=== PATIENT | female | born 1990 | race Two or more races ===

== ENCOUNTER 2017-12-01 00:17 | Observation (INO) | payer MEDICAID, OTHER ==
[2017-12-01] MEDS ORDERED: FERR-7 PO (02:58)
[2017-12-01] MEDS ORDERED: PRENCAP61 OR (02:58)
== END 2017-12-01 02:50 | disposition home or self-care (01) | DRG 563 ==
LOC: LDRP 00:17
PROVIDERS: ADMIT Specialist; ATTEND Specialist
DX: O60.03 Preterm labor without delivery, third trimester (principal); O26.893 Other specified pregnancy related conditions, third trimester; N89.8 Other specified noninflammatory disorders of vagina; Z3A.39 39 weeks gestation of pregnancy
CPT/HCPCS: 59025; 81002; G0378